=== PATIENT | male | born 1960 | race Caucasian/White ===

== ENCOUNTER 2023-04-21 18:28 | Emergency (ER) | payer OTHER ==
[2023-04-21 18:56] VITALS: BP 125/80; PULSE 83; RESP 18; TEMP 98.1; BMI 27.8
[2023-04-21] MEDS ORDERED: DALBAVANCIN HCL 500 MG VIAL (RESTRICTED TO ID ONLY) IVPB ONE (20:34)
[2023-04-21] MEDS: DALBAVANCIN HCL 1,500 MG in DEXTROSE 5%-WATER - 500 ML IVPB ONE (21:06)
[2023-04-21 21:25] LABS: HEMATOCRIT 46.9 % (35.4-49); HEMOGLOBIN 16.1 G/dL (11.7-16.9); MCH 31.9 pg (25.7-33.7); MCHC 34.3 g/dl (32.0-35.9); MEAN CELL VOLUME 92.9 fl (80-96); MEAN PLT VOLUME 8.1 fl (7.5-11.1); RBC 5.05 10^6/uL (4.00-5.60); RDW 14.9 % (11.9-15.9); WHITE BLOOD COUNT 11.1 10^3/uL (4.0-10.8)
[2023-04-21 21:41] LABS: ALBUMIN 4.3 g/dl (3.4-5.0); BILIRUBIN,TOTAL 0.4 mg/dl (0.2-1); CALCIUM 9.5 mg/dl (8.5-10.1); CREATININE 0.8 mg/dl (0.6-1.3); TOT PROT 6.7 g/dl (6.4-8.2)
[2023-04-21 21:46] LABS: PLATELET ESTIMATE ADEQUATE
== END 2023-04-21 22:43 | disposition home or self-care (01) ==
LOC: FER 18:28
DX: L03.115 Cellulitis of right lower limb (principal)
CPT/HCPCS: 36415; 80053; 85027; 87040; 99284-25; J0875

== ENCOUNTER 2023-04-24 11:44 | Emergency (ER) | payer OTHER ==
[2023-04-24 12:38] VITALS: BP 131/93; PULSE 81; RESP 20; TEMP 98.3; BMI 27.1
[2023-04-24] MEDS ORDERED: CLINDAMYCIN 600MG PREMIX IVPB 600 MG/50 ML BAG IVPB ONE (12:41)
[2023-04-24] MEDS ORDERED: CLINDAMYCIN HCL 150 MG CAPSULE (FP) ONE (13:29)
[2023-04-24] MEDS: CLINDAMYCIN HCL 300 MG CAPSULE PO ONE (13:48)
[2023-04-24] MEDS: CLINDAMYCIN 600MG PREMIX IVPB 600 MG/50 ML BAG IVPB ONE (13:48)
== END 2023-04-24 14:11 | disposition home or self-care (01) ==
LOC: FER 11:44
PROC: 0H9KXZZ Drainage of Right Lower Leg Skin, External Approach (ICD-10-PCS; principal; 2023-04-24)
DX: L02.415 Cutaneous abscess of right lower limb (principal); L03.115 Cellulitis of right lower limb; Z48.01 Encounter for change or removal of surgical wound dressing
CPT/HCPCS: 87070; 87186; 87205; 99283-25

== ENCOUNTER 2023-04-26 16:46 | Emergency (ER) | payer OTHER ==
[2023-04-26 17:04] VITALS: BP 127/85; PULSE 79; RESP 18; TEMP 98.2; BMI 27.8
== END 2023-04-26 18:00 | disposition home or self-care (01) ==
LOC: FER 16:46
DX: Z48.00 Encounter for change or removal of nonsurgical wound dressing (principal)
CPT/HCPCS: 99281-25